=== PATIENT | male | born 1940 | race Hispanic/Latino ===

== ENCOUNTER → 2019-04-05 | Day surgery (SDC) | payer MEDICARE ==
[2019-04-02 13:21] LABS: BASOPHILS # (AUTO) 0.1 (0.0-0.1); BASOPHILS % 0.5 % (0.0-1.0); EOSINOPHILS # (AUTO) 0.3 (0.0-0.4); EOSINOPHILS % 2.6 % (0.0-6.0); HEMATOCRIT 39.7 % (38.2-49.6); HEMOGLOBIN 13.5 g/dL (14.0-18.0); LYMPHOCYTES # (AUTO) 3.1 (1.0-3.2); LYMPHOCYTES % 28.4 % (18.0-39.1); MEAN CORPUSCULAR HEMOGLOBIN 31.3 pg (28-32); MEAN CORPUSCULAR VOLUME 92.1 fL (81-99); MONOCYTES # (AUTO) 0.8 (0.2-0.8); NEUTROPHILS # (AUTO) 6.7 (2.1-6.9); NEUTROPHILS % 61.2 % (38.7-80.0); PLATELET COUNT 317 x10e3/uL (140-360); RED BLOOD COUNT 4.31 x10e6/uL (4.3-5.7); RED CELL DISTRIBUTION WIDTH 13.4 % (11.7-14.4)
[2019-04-02 13:40] LABS: ANION GAP 11.2 mmol/L (8-16); CALCIUM 9.4 mg/dL (8.4-10.2); CREATININE, SERUM 1.33 mg/dL (0.72-1.25); POTASSIUM 4.2 mmol/L (3.5-5.1)
--- NOTE | 2019-04-02 13:47 | Diagnostic Imaging Report ---
EXAMINATION: CHEST 2 VIEWS INDICATION: Pre-op orders. COMPARISON: None FINDINGS: TUBES and LINES: None. LUNGS: Lungs are well inflated. Mild patchy bibasilar opacities, likely atelectasis. No evidence of lobar pneumonia. Likely small calcified granuloma in the left lower lung peripherally. PLEURA: No pleural effusion or pneumothorax. HEART AND MEDIASTINUM: The cardiomediastinal silhouette is unremarkable. BONES AND SOFT TISSUES: No acute osseous abnormality. UPPER ABDOMEN: No free air under the diaphragm. IMPRESSION: No acute radiographic abnormality. Signed by: Dr. Luis Vines MD on 04/02/2019 1:43 PM
[~2019-04-05] MED LIST: AMLODIPINE BESY10 MG PO; BUPIVACAINE HCL 0.5% INJ 30 ML VIAL INJ ONE; CEFAZOLIN SOD 1 GM/NS 50ML 50 ML IV ONE; DEXAMETHASONE SOD PHOS INJ 4 MG/ML VIAL ONE; FENTANYL CITRATE/PF 100MCG/2 ML INJ ONE; HYDROCHLOROTHIA25 MG PO; LABETALOL HCL 0 ML ONE; LASIX20 MG PO; LEVOCETIRIZINE D5 MG PO; LIDOCAINE HCL 1% LOCAL INJ 20 ML VIAL ONE; LIDOCAINE HCL 2% LOCAL INJ 5 ML SDV VIAL INJ ONE; LISINOPRIL10 MG PO; METFORMIN HCL500 MG PO; METOPROLOL SUCC25 MG PO; MIDAZOLAM HCL 2 MG/2 ML VIAL ONE; OMEPRAZOLE40 MG PO; ONDANSETRON HCL INJ 2MG/ML 2ML 2 MG/ML VIAL ONE; PRAVASTATIN SOD40 MG PO; PROPOFOL IV EMULSION 10 MG/ML 20 ML VIAL ONE; SEVOFLURANE INHAL SOLN 250 ML PEN BTL ONE
--- OUTSIDE RECORDS SUMMARY | 2019-04-05 05:57 | XMS REPORT | Clinical Summary ---
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 Unavailable Allergies Comments Active Allergy Reactions Severity Noted Date HEART BURN Aspirin Other 06/12/2009 No Known Allergies 05/15/2009 Medications End Date Status Medication Sig Dispensed Refills Start Date Active CLOTRIMAZOLE 1 % TOPICAL APPLY TO 1 MONTH 3 SOLNIndications: AFFECTED TOE 9 Onychomycosis NAILS BID Active LISINOPRIL 20 MG TAKE 1 TABLET 60 2 TABIndications: HTN BY MOUTH 0 (hypertension) TWICE DAILY Active HYDROCHLOROTHIAZIDE 25 MG TAKE 1 TABLET 30 2 TABIndications: HTN BY MOUTH ONCE 0 (hypertension) DAILY 2018 cephALEXin (KEFLEX) 500 Take 1 20 capsule 0 mg capsuleIndications: capsule by 8 Laceration of left thumb mouth 4 times without foreign body daily for 5 without damage to nail, days. initial encounter Active Problems Problem Noted Date Laceration of left thumb without foreign body without damage to nail 06/01/2018 Hydrocoele 05/22/2007 Gastritis 09/29/2006 HTN (hypertension) 09/29/2006 BPH (benign prostatic hypertrophy) 09/29/2006 Impaired fasting glucose 09/29/2006 Encounters Care Team Description Date Type Specialty Eunice Rhodes MD Laceration of left thumb without foreign body without damage to nail, initial encounter (Primary Dx) 06/01/2018 Emergency Emergency Medicine after 04/04/2018 Immunizations Name Administration Dates Next Due Hepatitis B Vaccine 02/04/2008, 01/04/2008 Influenza Vaccine 08/11/2009, 09/11/2007, 09/29/2006 09/11/2008 PPV 23 Pneumococcal 09/11/2007 Polysaccaride Td Tetanus, diphtheria 01/04/2008 Toxoids Vaccine Tdap (Tetanus Toxoid, 06/01/2018 Reduced Diphtheria Toxoid And Acellular Pertussis, Absorbed) Family History Medical History Relation Name Comments Hypertension Brother Cancer Father lung cancer Hypertension Other self Psychiatry Other cousin Relation Name Status Comments Brother Father lung cancer (Age 84) Mother unknown (Age 92) Other Other Social History Date Tobacco Use Types Packs/Day Years Used Never Smoker Drinks/Week oz/Week Comments Alcohol Use No Sex Assigned at Date Recorded Not on file Industry Job Start Date Occupation Not on file Not on file Not on file Travel End Travel History Travel Start No recent travel history available. 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 Body Mass Index Plan of Treatment Health Maintenance Due Date Last Done Comments IMM Pneumococcal Age 65 2007 and Up IMM Influenza Seasonal 07/23/2019Jul to December (>/=19 yrs) Procedures Comments Procedure Name Priority Date/Time Associated Diagnosis XRAY HAND 3 VIEWS - STAT 06/01/2018 Laceration of left thumb ROUTINE 9:47 AM CDT without foreign body without damage to nail, initial encounter LACERATION REPAIR Routine 06/01/2018 Laceration of left thumb 9:34 AM CDT without foreign body without damage to nail, initial encounter POC GLUCOSE - IN LAB Routine 06/01/2018 (STAT) 8:55 AM CDT after 04/04/2018 Results * XRAY HAND 3 VIEWS - ROUTINE (06/01/2018 9:47 AM CDT) Specimen Impressions Performed At [facility]: [facility] No fracture, retained foreign body, air in tissues, or other radiographic abnormality identified Dictated By: Tyler Edward MD, 06/01/2018 10:38 AM I have reviewed the study and agree with the findings in this report. Signed By: Geronimo Persaud MD, 06/01/2018 10:42 AM Narrative Performed At EXAM: XR LEFT HAND 3 VIEWS [facility] DATE:06/01/2018 9:47 AM INDICATION: Laceration of left thumb COMPARISON: None TECHNIQUE:PA, lateral and oblique hand radiographs DISCUSSION: Laceration of the left thumb observed overlying the medial aspect of distal end of proximal first phalanx. The site is not associated with fracture, retained foreign body, gas in tissues. No soft tissue abnormality is identified. Procedure Note Interface, Rad/Mammog In - 06/01/2018 10:47 AM CDT EXAM: XR LEFT HAND 3 VIEWS DATE: 06/01/2018 9:47 AM INDICATION: Laceration of left thumb COMPARISON: None TECHNIQUE: PA, lateral and oblique hand radiographs DISCUSSION: Laceration of the left thumb observed overlying the medial aspect of distal end of proximal first phalanx. The site is not associated with fracture, retained foreign body, gas in tissues. No soft tissue abnormality is identified. IMPRESSION IMPRESSION: No fracture, retained foreign body, air in tissues, or other radiographic abnormality identified Dictated By: Tyler Edward MD, 06/01/2018 10:38 AM I have reviewed the study and agree with the findings in this report. Signed By: Geronimo Persaud MD, 06/01/2018 10:42 AM Performing Organization Address City/State/Zipcode Phone Number SMS * LACERATION REPAIR (06/01/2018 9:34 AM CDT) Narrative Performed At Maciej Buckner PA 06/02/20187:44 AM Laceration Repair Date/Time: 06/02/2018 7:39 AM Performed by: MACIEJ BUCKNER Authorized by: MACIEJ BUCKNER Consent: Consent obtained:Verbal Consent given by:Patient Anesthesia (see MAR for exact dosages): Anesthesia method:None Laceration details: Location:Hand Hand location:L palm Length (cm):2 Depth (mm):2 Repair type: Repair type:Simple Pre-procedure details: Preparation:Patient was prepped and draped in usual sterile fashion Exploration: Hemostasis achieved with:Direct pressure Wound exploration: wound explored through full range of motion Wound extent: areolar tissue violated Wound extent: no foreign body, no signs of injury, no nerve damage, no tendon damage, no underlying fracture and no vascular damage Contaminated: no Treatment: Area cleansed with:Betadine and saline Amount of cleaning:Extensive Irrigation solution:Sterile saline Irrigation volume:300cc Irrigation method:Pressure wash Visualized foreign bodies/material removed: no Skin repair: Repair method:Sutures and Steri-Strips Suture size:4-0 Suture material:Prolene Suture technique:Simple interrupted Number of sutures:4 Number of Steri-Strips:4 Approximation: Approximation:Close Post-procedure details: Dressing:Non-adherent dressing Patient tolerance of procedure:Tolerated well, no immediate complications * GLUCOSE POC (06/01/2018 8:55 AM CDT) Glucose POC 148 (H) 74 - 106 mg/dL [facility] 1 Specimen Performing Organization Address City/State/Zipcode Phone Number [facility] 1 after 04/04/2018 Insurance Type Payer Benefit Subscriber ID Effective Phone Address Plan / Dates Group [employer] HMO [employer] xxxxxxxxx 2017-P [phone] [address] [address] [place] [address] [place] MEDICA[place] [id number] xxxxxxxxx 2017- [phone] [address] Present 2005 MEDICARE [place], [place] BENEFICIAR [id number] Y
--- OUTSIDE RECORDS SUMMARY | 2019-04-05 05:57 | XMS REPORT ---
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 Allergies, Adverse Reactions, Alerts This patient has no known allergies or adverse reactions. Medications This patient has no known medications. Encounters Start Date/Time End Date/Time Encounter Type Admission Type Attending [facility] Care Facility Care Department Encounter ID 2018-06-01 09:42:38 2018-06-01 09:42:38 Emergency [facility] [id number] 2018-06-01 09:17:49 2018-06-01 09:17:49 Emergency [facility] [id number] Results Test Description Test Time Test Comments Text Results Atomic Results Result Comments CHEST 2 VIEWS 2019-04-02 13:41:00 [place] [id number] Patient Name: DOROTHY MILLS MR #: [id number] : 1940 Age/Sex: 78/M Req #: [id number] Adm Physician: Ordered by: MEGHA YBARRA MD Report #: [id number] Location: OR Room/Bed: Procedure: [id number] DX/CHEST 2 VIEWS Exam Date: 04/02/19 Exam Time: 1322 REPORT STATUS: Signed EXAMINATION: CHEST 2 VIEWS INDICATION: Pre-op orders . COMPARISON: None FINDINGS: TUBES and LINES: None. LUNGS: Lungs are well inflated. Mild patchy bibasilar opacities, likely atelectasis. No evidence of lobar pneumonia. Likely small calcified granuloma in the left lower lung peripherally. PLEURA: No pleural effusion or pneumothorax. HEART AND MEDIASTINUM: The cardiomediastinal silhouette is unremarkable. BONES AND SOFT TISSUES: No acute osseous abnormality. UPPER ABDOMEN: No free air under the diaphragm. IMPRESSION: No acute radiographic abnormality. Signed by: Dr. Nicolette Ramirez MD on 04/02/2019 1:43 PM Dictated By: NICOLETTE RAMIREZ MD [id number] Transcribed By: CRIS on 04/02/19 1343 COPY TO: MEGHA YBARRA MD
--- NOTE | 2019-04-05 07:10 | NUR ---
SPIRITUAL CARE - Pre-Surgery Assessment: Pt in bed. Pt's at bedside. Pt reported supportive attention from family and friends. Intervention: I provided pastoral presence, hospitality, and sympathetic listening. I acquainted pt with availability of superintendent marine while hospitalized. Outcome: Pt expressed appreciation for visit. No need for follow up indicated at this time. [facility] Spiritual Care Department O: [phone] Pager: [phone] ([phone] number calling from)
[2019-04-05 10:02] VITALS: BP 171/84
--- NOTE | 2019-04-05 10:27 | Operative Report ---
DATE OF PROCEDURE: 04/05/2019 SURGEON: Jhony Steele MD PREOPERATIVE DIAGNOSIS: Complex left hydrocele. POSTOPERATIVE DIAGNOSES: Complex left hydrocele with left spermatocele. PROCEDURES: 1. Left hydrocele repair. 2. Left spermatocele excision. ANESTHESIA: General. ESTIMATED BLOOD LOSS: Minimal. COMPLICATIONS: None. INDICATIONS FOR PROCEDURE: Mr. Morales is a 78-year-old male with a history of two prior left-sided hydrocele and spermatocele repairs. He and I had a long discussion about alternatives, risks, and benefits including doing nothing, excision and repair. He voiced understanding of the options, the alternatives, the high risk of recurrence and elected to proceed PROCEDURE IN DETAIL: After informed consent was obtained, the patient was taken to the operative suite, placed supine on the operative table, underwent general anesthesia by Anesthesia service, was placed in supine position. He was sterilely prepped and draped in standard fashion for scrotal surgery. Incision was made in the skin and subcutaneous tissues. Testicle was delivered extravaginally and the hydrocele was incised sharply. Large utility sales representative section of this was excised and passed off table as specimen. Testicle was then delivered and the sac was then folded back upon itself and sewn in a bottleneck fashion. There was a small spermatocele seen on the head and this was removed with electrocautery and the base fulgurated. At this time, the wound was inspected for hemostasis. The wound was irrigated. The testicle was placed in an extra cremasteric pouch. A drain was left. The cremasters were closed with a running chromic gut stitch. The skin was closed with a running chromic gut stitch. The patient was awakened from anesthesia and transferred to the recovery room in excellent condition with no untoward effects noted and all sponge and instrument counts correct x2. Jhony Steele MD ES/MODL /[id number] cc: Parveen Washington MD [facility]
== END | disposition home or self-care (01) ==
LOC: OR 05:51
PROVIDERS: ATTEND Urology
DX: N43.3 Hydrocele, unspecified (principal); N43.41 Spermatocele of epididymis, single; N50.3 Cyst of epididymis; N40.1 Benign prostatic hyperplasia with lower urinary tract symptoms; R35.0 Frequency of micturition; R39.14 Feeling of incomplete bladder emptying; R35.1 Nocturia; R80.9 Proteinuria, unspecified; N52.9 Male erectile dysfunction, unspecified; E11.9 Type 2 diabetes mellitus without complications; I10 Essential (primary) hypertension; I25.2 Old myocardial infarction; G89.29 Other chronic pain; Z01.810 Encounter for preprocedural cardiovascular examination; Z01.812 Encounter for preprocedural laboratory examination; Z01.818 Encounter for other preprocedural examination; Z79.84 Long term (current) use of oral hypoglycemic drugs
CPT/HCPCS: 36415 ×2; 54840; 55060; 71046; 80048; 82948; 85025; 88304; 93005; J0690; J1100; J2001; J2250; J2405; J2704